=== PATIENT | female | born 1980 | race Caucasian/White ===

== ENCOUNTER 2017-06-05 05:31 | Inpatient (IN) | payer OTHER ==
[2017-05-28 13:32] VITALS: BMI 28.0
--- NOTE | 2017-05-28 13:53 | PAT Medication Instructions ---
Service Date May 28, 2017. Current Home Medication List Cholecalciferol (Vitamin D3), 1 TAB PEG QAM Multivit/Min/Iron/Fol Ac/Pren ( Vitamin), 1 TAB PO QAM Medication Instructions For Your Scheduled Surgery - Hold the following medications the morning of surgery: Cholecalciferol (Vitamin D3), 1 TAB PEG QAM Multivit/Min/Iron/Fol Ac/Pren ( Vitamin), 1 TAB PO QAM If you have any questions please call us at [phone] or [phone] or [phone]
[2017-05-28 14:22] LABS: EOS % 0.5 %; EOS ABS # 0.05 K/uL (0-0.5); HEMATOCRIT 35.2 % (37-47); IG# 0.08 K/uL (0.00-0.02); LYMPH % 20.8 %; LYMPH ABS # 1.97 K/uL (1.2-3.4); MEAN CELL VOLUME 89.1 fL (80-100); MEAN CORPUSCULAR HEMOGLOBIN 30.4 pg (25-34); MEAN CORPUSCULAR HGB CONC 34.1 g/dl (32-36); MEAN PLATELET VOLUME 9.9 fL (7.4-10.4); MONO ABS # 0.47 K/uL (0.11-0.59); NEUT % 72.9 %; NEUT ABS # 6.89 K/uL (1.4-6.5); PLATELET COUNT 222 K/uL (130-400); RED CELL DISTRIBUTION WIDTH CV 13.4 % (11.5-14.5); RED CELL DISTRIBUTION WIDTH SD 44.5 fL (36.4-46.3); WHITE BLOOD COUNT 9.46 K/uL (4.8-10.8)
[2017-06-05] VITALS (12 sets, daily range): BP systolic 98–105; BP diastolic 61–63; PULSE 62–72; TEMP 36.9–37.1; O2SAT 96–100; Ht 157.5 cm; Wt 69.5 kg
[~2017-06-05] VITALS: Ht 157.5 cm; Wt 69.5 kg
[~2017-06-05 05:31] MED LIST: PRENTAB26 PO; VTMD1000 PEG
[2017-06-05] MEDS ORDERED: LACTATED RINGER'S 1000ML 1,000 ML IV SCH ×3 (05:33→09:20)
[2017-06-05] MEDS ORDERED: CEFAZOLIN IV 2,000 MG in SYRINGE 0 ML IV SCH (06:00)
[2017-06-05] MEDS ORDERED: CITRIC ACID/SODIUM CITRATE 15 ML UDC PO SCH (06:00)
[2017-06-05 06:15] LABS: BASO % 0.1 %; BASO ABS # 0.01 K/uL (0-0.2); EOS % 0.7 %; EOS ABS # 0.08 K/uL (0-0.5); HEMATOCRIT 35.6 % (37-47); HEMOGLOBIN 12.4 g/dL (12.0-16.0); IG# 0.07 K/uL (0.00-0.02); LYMPH % 23.2 %; LYMPH ABS # 2.85 K/uL (1.2-3.4); MEAN CELL VOLUME 87.5 fL (80-100); MEAN CORPUSCULAR HEMOGLOBIN 30.5 pg (25-34); MEAN CORPUSCULAR HGB CONC 34.8 g/dl (32-36); MEAN PLATELET VOLUME 9.4 fL (7.4-10.4); MONO % 4.3 %; MONO ABS # 0.53 K/uL (0.11-0.59); NEUT % 71.1 %; NEUT ABS # 8.76 K/uL (1.4-6.5); PLATELET COUNT 266 K/uL (130-400); RED CELL DISTRIBUTION WIDTH CV 13.3 % (11.5-14.5); RED CELL DISTRIBUTION WIDTH SD 42.9 fL (36.4-46.3)
[2017-06-05] MEDS ORDERED: PHENYLEPHRINE 100MCG/ML 5ML SYR ONE (06:41)
[2017-06-05] MEDS ORDERED: OXYTOCIN INJ 10 UNITS/ML VIAL ONE ×2 (06:41→09:08)
[2017-06-05] MEDS ORDERED: FENTANYL CITRATE INJ 50 MCG/1 ML 2 ML VIAL ONE (06:41)
[2017-06-05] MEDS ORDERED: MoRPHine SULFATE PF 1 MG/ML 10 ML AMP/VIAL ONE (06:41)
--- NOTE | 2017-06-05 06:50 | History & Physical Bridge Note ---
H&P Re-Evaluation Bridge Note: I have examined the patient, reviewed the History & Physical and in the interval since the performance of the History & Physical I have noted the following changes of clinical significance: No changes noted
--- NOTE | 2017-06-05 09:18 | [facility] Post Operative Brief Note ---
Immediate Operative Summary Operative Date Jun 05, 2017. Pre-Operative Diagnosis Term ; Previous Caesarean Section Post-Operative Diagnosis Same Procedure(s) Performed Repeat Caesarean Section: Delivery of a live male child at [address] Collado Jackhammer Splitter Operator Surgeon(s) Dr. Orta Estimated Blood Loss 500 Findings Consistent with Post-Op Diagnosis Fluids (cc crystalloids) 1000 Specimens cord blood placenta-exam Drains [place] to [facility] Anesthesia Type Spinal Complication(s) none Disposition Accompanied Pt To Recover: no Disposition: L&D
[2017-06-05] MEDS ORDERED: LACTATED RINGER'S 1000ML 500 ML IV PRN (09:29)
[2017-06-05] MEDS ORDERED: SODIUM CHLORIDE 0.9% 1000ML 1,000 ML IV PRN (09:29)
[2017-06-05] MEDS ORDERED: NALOXONE HCL INJ 0.08 MG in SYRINGE 1.8 ML IV PRN (09:29)
[2017-06-05] MEDS ORDERED: NALOXONE HCL INJ 1 MG in SODIUM CHLORIDE 0.9% 1000ML 1,000 ML IV PRN (09:29)
[2017-06-05] MEDS ORDERED: HYDROCORTISONE ACETATE 25 MG SUPP PR PRN (09:30)
[2017-06-05] MEDS ORDERED: DIPHTHERIA/TETANUS/PERTUSSIS 0.5 ML SYR/VIAL IM. ONE (09:30)
[2017-06-05] MEDS ORDERED: NALBUPHINE HCL INJ 10 MG/ML AMP IV PRN (09:30)
[2017-06-05] MEDS ORDERED: BENZOCAINE 20% AER SPR 82.5 GM CAN EXT PRN (09:30)
[2017-06-05] MEDS ORDERED: MAGNESIUM HYDROXIDE SUSP 30 ML UDC PO PRN (09:30)
[2017-06-05] MEDS ORDERED: ONDANSETRON INJ 2 MG/ML 2 ML VIAL IV PRN (09:30)
[2017-06-05] MEDS ORDERED: KETOROLAC TROMETHAMINE 30 MG/ML VIAL IV. PRN (09:30)
[2017-06-05] MEDS ORDERED: MoRPHine SULFATE PF 1 MG/ML 10 ML AMP/VIAL INT SPINAL PRN (09:30)
[2017-06-05] MEDS ORDERED: SUPERCREAM 0.870 % 15GM JAR EXT PRN (09:30)
[2017-06-05] MEDS ORDERED: MoRPHine SULFATE 2 MG/ML CARP IV PRN (09:30)
[2017-06-05] MEDS ORDERED: NALOXONE HCL 0.4 MG/1 ML VIAL/CARP IV PRN (09:30)
[2017-06-05] MEDS ORDERED: NO NARCOTICS OR SEDATIVES SCH (09:30)
[2017-06-05] MEDS ORDERED: DiphenhydrAMINE HCL 50 MG/ML VIAL IV PRN (09:30)
[2017-06-05] MEDS ORDERED: EpHEDrine SULFATE INJ 50 MG/ML AMP IV PRN (09:30)
[2017-06-05] MEDS ORDERED: SENNA 8.6 MG TAB PO PRN (09:30)
[2017-06-05] MEDS ORDERED: LANOLIN OINT EXT PRN (09:30)
--- NOTE | 2017-06-05 09:30 | Anesthesiology Progress Note ---
Anesthesia Post Op Note Date & Time Jun 05, 2017 at 09:30 Notes Mental Status: alert / awake / arousable, participated in evaluation Pt Amnestic to Procedure: Yes Nausea / Vomiting: adequately controlled Pain: adequately controlled Airway Patency, RR, SpO2: stable & adequate BP & HR: stable & adequate Hydration State: stable & adequate Neuraxial Anesthesia: was administered, sensory block is resolving Anesthetic Complications: no major complications apparent
[2017-06-05] MEDS: OXYTOCIN INJ 30 UNITS in LACTATED RINGER'S 1000ML 1,000 ML IV SCH ×2 (09:58→18:19)
--- NOTE | 2017-06-05 10:19 | OPERATIVE REPORT ---
DATE OF OPERATION: 06/05/2017 PREOPERATIVE DIAGNOSES: 1. Intrauterine at 40 weeks and 4 days gestation. 2. History of previous section, requesting repeat section. POSTOPERATIVE DIAGNOSES: Same. OPERATIVE PROCEDURE: Repeat low transverse section. SURGEON: Dr. Collado. CRYSTAL FLAT GRINDER: Dr. Orta. ANESTHESIA: Spinal. ESTIMATED BLOOD LOSS: 500 mL. IV FLUIDS: 1000 mL crystalloids. URINE OUTPUT: 450 mL clear yellow urine. SPECIMENS: Cord blood and placenta to pathology. DRAINS: [place]rose to gravity. COMPLICATIONS: None. DISPOSITION: To labor and delivery. OPERATIVE FINDINGS: The patient delivered a viable male in the vertex position at 8:49 a.m. on 06/05/2017. Apgars and weight pending. Please see insulation technician's notes for further baby assessment. Cord blood was obtained and intact placenta with 3-vessel cord was delivered at 8:50 and sent to pathology. Grossly normal uterus and bilateral tubes and ovaries were noted. Both patient and baby tolerated the surgery well and were sent to recovery with stable vital signs. OPERATIVE PROCEDURE IN DETAIL: The patient was taken to the operating room where spinal anesthesia was administered. She was immediately placed in a dorsal supine position with a left lateral tilt and was prepped and draped in a manner appropriate for procedure. Once the anesthesia was found to be adequate, a Pfannenstiel skin incision was made over the previous scar. The incision was carried down through to a layer of the rectus fascia. Fascia was nicked in the midline and extended bilaterally with curved Ramirez scissors. The superior aspect of the fascial incision was grasped with Sweta clamps, elevated, and rectus muscles were dissected off with the use of the electrocautery and curved Ramirez scissors. Likewise, the inferior aspect of the fascial incision was grasped with Sweta clamps, elevated, and rectus muscles were dissected off with the use of the electrocautery and curved Ramirez scissors. Rectus muscles were in midline. Peritoneum was entered bluntly and extended cephalocaudally with gentle traction. A bladder blade was then placed within the abdomen. The vesicouterine peritoneum was identified and a bladder flap was created with the Metzenbaum scissors and digital traction. The bladder flap was reincorporated beneath the Gita blade. A transverse incision was then made on the uterus and extended bilaterally with digital traction. Clear amniotic fluid was noted. The baby's head was identified and delivered through the incision along with the rest of the baby. Baby was bulb suctioned at delivery. Cord was clamped x2 and cut. Baby was immediately handed to an awaiting insulation technician for further evaluation and management. Please see their notes for further baby assessment. Cord blood was then obtained and intact placenta with 3-vessel cord was manually removed from the uterus at 8:50 a.m. and sent to pathology. Oxytocin infusion was then begun. The uterus was then exteriorized and wrapped in a moist laparotomy sponge. The uterus then cleared of any trailing membranes and debris with a laparotomy sponge. The uterine incision was then grasped with ring forceps in 4 quadrants and was closed with 0 Vicryl suture in continuous locking fashion. A second layer of 0 Vicryl suture was used in imbricating fashion to ensure hemostasis. Any residual bleeding was suture ligated with 0 Vicryl suture in a [id number] interrupted fashion. Excellent hemostasis was noted at the incision. The posterior cul-de-sac was then irrigated with warm saline solution. The uterus was then placed back within its normal anatomic position within the abdomen. The anterior cul-de-sac was then irrigated with warm saline solution again noting hemostasis at the incision. All instruments were then removed from the abdomen. The peritoneum was then grasped with Libby clamps at 4 quadrants and was then closed with 2-0 Vicryl suture in continuous running fashion. The rectus muscles were reapproximated with 2-0 Vicryl suture in a continuous running fashion. Rectus fascia was then closed with 0 Vicryl suture in a continuous running fashion. Subcutaneous tissue was reapproximated with 2-0 Vicryl suture in continuous running fashion. Skin was then closed with isaac. Excellent hemostasis was noted through all tissue layers. All sponge, instrument and needle counts found to be correct x2. I attest to the content of the Intraoperative Record and any orders documented therein. Any exception s are noted below.
[2017-06-05] MEDS: SIMETHICONE 80 MG CHEW PO SCH ×3 (15:37→20:21)
[2017-06-05] MEDS: DOCUSATE SODIUM 100 MG CAP PO SCH (20:21)
[2017-06-06] VITALS (7 sets, daily range): BP systolic 96–103; BP diastolic 58–63; PULSE 66–81; TEMP 36.6–36.8; O2SAT 96–98
[2017-06-06] MEDS ORDERED: DC INTRASPINAL MORPHINE ONE (02:30)
[2017-06-06] MEDS ORDERED: KETOROLAC TROMETHAMINE 30 MG/ML VIAL IV. PRN (02:31)
[2017-06-06] MEDS ORDERED: OXYCODONE/ACETAMINOPHEN 5-325 TAB PO PRN ×2 (02:31)
[2017-06-06] MEDS ORDERED: DiphenhydrAMINE HCL 50 MG/ML VIAL IV PRN (02:31)
[2017-06-06] MEDS ORDERED: ONDANSETRON INJ 2 MG/ML 2 ML VIAL IV PRN (02:31)
[2017-06-06 07:44] LABS: BASO % 0.1 %; BASO ABS # 0.01 K/uL (0-0.2); EOS % 0.2 %; EOS ABS # 0.03 K/uL (0-0.5); HEMATOCRIT 37.8 % (37-47); LYMPH % 11.7 %; MEAN CELL VOLUME 87.1 fL (80-100); MEAN CORPUSCULAR HGB CONC 34.4 g/dl (32-36); MEAN PLATELET VOLUME 9.8 fL (7.4-10.4); MONO % 5.2 %; MONO ABS # 0.84 K/uL (0.11-0.59); NEUT % 82.2 %; NEUT ABS # 13.32 K/uL (1.4-6.5); PLATELET COUNT 297 K/uL (130-400); RED CELL DISTRIBUTION WIDTH CV 13.2 % (11.5-14.5); RED CELL DISTRIBUTION WIDTH SD 42.5 fL (36.4-46.3)
[2017-06-06] MEDS: FERROUS SULFATE 325 MG TAB PO SCH (08:56)
[2017-06-06] MEDS: SIMETHICONE 80 MG CHEW PO SCH ×4 (08:56→20:28)
[2017-06-06] MEDS: DOCUSATE SODIUM 100 MG CAP PO SCH ×2 (08:57→20:28)
[2017-06-06] MEDS: IBUPROFEN 600 MG TAB PO PRN ×4 (09:01→23:44)
--- NOTE | 2017-06-06 11:51 | Surgery Progress Note ---
Surgery Progress Note Date of Service Jun 06, 2017. Subjective Post OP Day: 1 + feeling well, + ambulating, + flatus, + pain controlled, + diet (Tolerating Po food and meds), No complaints, No chest pain, No SOB, No bowel movement, No using GLOVE CUTTER, No nausea, No vomiting Objective Vital Signs: Date Time Temp Pulse Resp B/P (MAP) Pulse Ox O2 Delivery O2 Flow Rate FiO2 06/06/17 07:40 36.8 77 16 103/58 (73) 97 Room Air 06/06/17 07:40 Room Air 06/06/17 04:25 36.7 81 16 101/63 (76) 98 Room Air 06/06/17 02:30 18 97 06/06/17 01:30 16 98 06/06/17 00:30 18 96 06/05/17 23:25 37.1 72 18 103/61 (75) 97 Room Air 06/05/17 23:25 18 97 06/05/17 23:25 97 Room Air 06/05/17 22:30 20 98 06/05/17 21:30 20 96 06/05/17 20:30 20 98 06/05/17 19:00 37.0 67 20 105/63 (77) 97 Room Air 06/05/17 19:00 20 97 06/05/17 17:30 20 99 06/05/17 16:30 20 99 06/05/17 16:30 36.9 62 20 99/61 (74) 99 Room Air 06/05/17 16:30 99 Room Air 06/05/17 15:30 20 98 06/05/17 14:30 20 100 06/05/17 13:30 37.0 69 20 98/62 (74) 100 Room Air 06/05/17 13:30 100 Room Air 06/05/17 13:30 100 Room Air 06/05/17 13:30 20 100 06/05/17 13:07 22 99 General Appearance: WD/WN, no apparent distress Head: normocephalic, atraumatic Neck: supple, no adenopathy, thyroid normal, no JVD, no carotid bruits, trachea midline Respiratory/Chest: chest non-tender, lungs clear, normal breath sounds, no respiratory distress, no accessory muscle use Cardiovascular: regular rate, rhythm, no edema, no gallop, no JVD, no murmur Incision(s): clean, dry, intact, no erythema, no drainage Extremities: normal range of motion, non-tender, normal inspection, no pedal edema, no calf tenderness, normal capillary refill, pelvis stable Laboratory Results: Results Past 24 Hours Test 06/06/17 07:05 Range/Units White Blood Count 16.20 4.8-10.8 K/uL Red Blood Count 4.34 4.2-5.4 M/uL Hemoglobin 13.0 12.0-16.0 g/dL Hematocrit 37.8 37-47 % Mean Corpuscular Volume 87.1 80-100 fL Mean Corpuscular Hemoglobin 30.0 25-34 pg Mean Corpuscular Hemoglobin Concent 34.4 32-36 g/dl Platelet Count 297 130-400 K/uL Mean Platelet Volume 9.8 7.4-10.4 fL Neutrophils (%) (Auto) 82.2 % Lymphocytes (%) (Auto) 11.7 % Monocytes (%) (Auto) 5.2 % Eosinophils (%) (Auto) 0.2 % Basophils (%) (Auto) 0.1 % Neutrophils # (Auto) 13.32 1.4-6.5 K/uL Lymphocytes # (Auto) 1.90 1.2-3.4 K/uL Monocytes # (Auto) 0.84 0.11-0.59 K/uL Eosinophils # (Auto) 0.03 0-0.5 K/uL Basophils # (Auto) 0.01 0-0.2 K/uL RDW Standard Deviation 42.5 36.4-46.3 fL RDW Coefficient of Variation 13.2 11.5-14.5 % Immature Granulocyte % (Auto) 0.6 % Immature Granulocyte # (Auto) 0.10 0.00-0.02 K/uL Assessment & Plan C/sed day #1 pt doing well No complaints
[2017-06-06] MEDS ORDERED: BISACODYL 5 MG TABEC PO ONE (22:00)
[2017-06-07] MEDS: IBUPROFEN 600 MG TAB PO PRN ×2 (05:39→10:03)
[2017-06-07 06:47] LABS: HEMOGLOBIN 11.8 g/dL (12.0-16.0)
[2017-06-07 07:50] VITALS: BP 110/67; PULSE 88; TEMP 36.8; O2SAT 99
[2017-06-07 08:00] VITALS: BP 99/62; PULSE 66; TEMP 36.7
[2017-06-07] MEDS: FERROUS SULFATE 325 MG TAB PO SCH (09:00)
[2017-06-07] MEDS: DOCUSATE SODIUM 100 MG CAP PO SCH (09:00)
[2017-06-07] MEDS: SIMETHICONE 80 MG CHEW PO SCH ×2 (09:00→13:47)
[2017-06-07] MEDS ORDERED: MTR600X PO (09:05)
[2017-06-07] MEDS ORDERED: OXYC-57 PO (09:05)
--- NOTE | 2017-06-07 09:07 | Discharge Instructions ---
Discharge Instructions Date of Service Jun 07, 2017. Admission Reason for Admission: Previous Section Delivery Discharge Discharge Diagnosis / Problem: term delivered by repeat Discharge Goals Goal(s): Routine recovery after Activity Recommendations Activity Limitations: as noted below Lifting Limitations: no more than 10 pounds Exercise/Sports Limitations: gradually increase as tolerated May Resume Sexual Activity: after follow-up appointment Shower/Bathe: no limitations Driving or Machine Use: . Instructions / Follow-Up Instructions / Follow-Up ACTIVITY RECOMMENDATIONS: * Gradual return to full activity over the next 2-3 weeks. * No lifting - nothing heavier than baby over the next 2-3 weeks. * Do not engage in vigorous exercise, sexual activity or sports until cleared by your physician. * Do not drive or operate any motorized equipment until cleared by your physician. * You may shower/bathe daily. BREAST CARE: If you are not breast feeding: * Wear a supportive bra 24 hours a day for one to two weeks. * Avoid stimulating your breasts and nipples as much as possible during the first few weeks after delivery. * When taking a shower, have the warm water hit your back, not breasts. * When your breasts feel full, apply ice packs. Usually three to four times a day helps ease the discomfort. * Take a mild pain medication (Tylenol/Motrin) when you are uncomfortable. If breast feeding: * Use breast milk to lubricate nipples. Lansinoh cream may be used for sore nipples. You do not need to remove cream prior to breast feeding. If using a different brand of cream, check the label for directions regarding removal of cream prior to nursing. * Wear a supportive bra. * If having problems with breasts or breast feeding, call a organizational development consultant or your health care provider. OVER THE COUNTER MEDICATION: * For discomfort or pain, you may use Acetaminophen (Tylenol), Ibuprofen (Advil ), or Naproxen (Aleve) following the package directions. * For constipation you may use Colace following the package directions. SPECIAL CARE INSTRUCTIONS: When you are discharged from the hospital, it is important for you to follow the instructions listed below: * During the first week at home, you should be able to care for yourself and your baby. In addition, the usual light household activities are encouraged. * Limit your activities to the way you feel. Do not try to clean the house or move furniture. Be sensible. * If you actively engage in sports and have done so up until the time of your delivery, you may resume these activities as soon as you feel able. This may take up to one month or even longer. Use good judgment. * Continue to take your vitamins for at least six weeks after the of your baby. * Your diet need not be limited unless you were on a special diet before your delivery. Breast-feeding mothers need around 2500 calories per day and at least 64-80 ounces of fluid per day (8 to 10 glasses). * You should eat foods from the four major food groups. Crash diets or fad diets are to be avoided. Eating lean meats, fresh fruits and vegetables, low-fat dairy products, high fiber foods and a regular exercise program, will help you get back to your pre- weight without putting your health at risk. * Constipation is sometimes a problem after delivery. Take a mild laxative as needed. If breast feeding, Milk of Magnesia is acceptable to use. You may use a suppository or Fleets enema if no episiotomy. * A daily shower or tub bath is suggested. Be sure to thoroughly and gently dry the perineum. * A bloody vaginal discharge will usually continue until around four weeks post . A small amount of bleeding may continue for as long as six weeks. Vaginal discharge changes from the bright red bleeding after delivery to pink then brownish and finally yellowish-pink before becoming white and disappearing. * Bleeding may increase with activity. Your first period may come in 4-8 weeks. If you are breast feeding, your period may be delayed even longer. * [place] (sex) can begin whenever both you and your partner feel comfortable and do not have any form of genital infection. It is recommended that you wait at least six weeks for internal and external healing to occur. If you have questions, please talk to your health care practitioner. A condom should be used to prevent infection and . * Foreplay, gentle intercourse and lubrication is very important the first several times to prevent pain. A water-based lubricant such as K-Y jelly or Astroglide may be used. * Tampons and/or Douching should be avoided until after six weeks check-up. * If you have RH negative blood and your baby is RH positive, you will receive RHOGAM by injection prior to discharge. The nurse will give you a card to keep with you that has the date and place that you received RHOGAM after delivery. * During your care, you had a Rubella screen done to check for the presence of rubella antibodies in your blood. If your test was negative, you will receive a Rubella vaccine prior to discharge. This vaccine may cause a fever, soreness at the injection site and flu-like symptoms. If these symptoms persist, notify your health care practitioner. is not advised for three months after a Rubella vaccine. * Verbalizes understanding of car seat law as reviewed with patient nursing. * Car Seat hand-out given and reviewed with patient by nursing. * Shaken baby information reviewed with patient by nursing. Call you doctor if: * Heavy bleeding (saturating several pads an hour) or passing clots the size of your fist. * A fever >101 degrees F (38.3 degrees C) on two occasions four hours apart and /or chills. * Unusual pain in the pelvic or vaginal areas. Pain should improve each day . * Call the doctor for any increased redness, drainage or swelling around the incision and any pain unrelieved by prescribed pain medication. * Any signs or symptoms of phlebitis (possible blood clots forming in the veins ): leg pain, warm, red or swollen area on leg. * "Baby Blues" lasting longer than two weeks. If you have any questions or concerns, call your health care practitioner at . FOLLOW-UP VISIT: * Incision check (staple removal) in 1 week. Please call doctor's office at to set up appointment. * Please call the office at to schedule a 6 week examination. It is important you keep this appointment. * It is important for you to make arrangements for either yearly or twice yearly check-ups thereafter. Current Hospital Diet Patient's current hospital diet: Regular OB Diet Discharge Diet Recommended Diet: Regular OB Diet Fluid Restriction: None Procedures Procedures Performed: Repeat Caesarean Section: Delivery of a live male child at 0849 Pending Studies Studies pending at discharge: no Medical Emergencies . Who to Call and When: Medical Emergencies: If at any time you feel your situation is an emergency, please call 911 immediately. . Non-Emergent Contact Non-Emergency issues call your: Primary Care Provider . . "Provider Documentation" section prepared by Bo Orta. .
--- NOTE | 2017-06-07 09:08 | Surgery Progress Note ---
Surgery Progress Note Date of Service Jun 07, 2017. Subjective Post OP Day: 2 + feeling well, + bowel movement, + flatus, + pain controlled, + diet Objective Vital Signs: Date Time Temp Pulse Resp B/P (MAP) Pulse Ox O2 Delivery O2 Flow Rate FiO2 06/07/17 08:00 36.7 66 18 99/62 (74) Room Air 06/06/17 23:25 Room Air 06/06/17 23:25 36.6 66 16 96/59 (71) 97 Room Air 06/06/17 15:40 Room Air 06/06/17 12:15 36.8 66 16 100/60 (73) 97 Room Air General Appearance: no apparent distress Abdomen: non tender, non distended, soft Incision(s): clean, dry, intact Extremities: non-tender, normal inspection, no pedal edema Laboratory Results: Results Past 24 Hours Test 06/07/17 06:24 Range/Units Hemoglobin 11.8 12.0-16.0 g/dL Hematocrit 35.0 37-47 % Assessment & Plan regular diet POD#2 discharged
[2017-06-07] MEDS ORDERED: BISACODYL 10 MG SUPP PR PRN (09:30)
[2017-06-07 14:41] VITALS: BP_DIAS 62; PULSE 66; TEMP 36.7
== END 2017-06-07 15:05 | disposition home or self-care (01) | DRG 766 ==
LOC: C.LD 05:31 → EDSTATUS 07:30 → C.OBG 11:52
PROVIDERS: ADMIT Obstetrics & Gynecology; ATTEND Obstetrics & Gynecology
PROC: 10D00Z1 Extraction of Products of Conception, Low, Open Approach (ICD-10-PCS; principal; 2017-06-05 07:30)
DX: O34.211 Maternal care for low transverse scar from previous cesarean delivery (principal); Z3A.40 40 weeks gestation of pregnancy; Z37.0 Single live birth